=== PATIENT | male | born 1945 | race Caucasian/White ===

== ENCOUNTER 2024-10-28 14:52 | Emergency (ER) | payer OTHER, MEDICARE ==
[2024-10-28 14:59] VITALS: PULSE 76
--- NOTE | 2024-10-28 15:22 | ED ---
Male Urogenital HPI - General Source: patient, RN notes reviewed Mode of arrival: ambulatory Limitations: no limitations <Sherrell Harris - Last Filed: 10/28/24 15:21> <Solitario Daley - Last Filed: 10/28/24 16:56> - General Chief complaint: Urogenital Stated complaint: Abnormal Genital Issue Time Seen by Provider: 10/28/24 15:21 - History of Present Illness Initial comments: Quick note: 79-year-old male presented to ER for evaluation of testicular pain. Patient states on Monday morning he has noticed enlargement of his left testicle. This has continued to enlarge in size over the past 2 days. He states it is currently 4-5 times the size of his right testicle. Patient reports pain with sitting. Patient admits to dysuria and is concerned he may have a UTI. Denies known fevers. (Sherrell Harris) - Related Data Previous Rx's Medication Instructions Recorded Ciprofloxacin HCl [Cipro] 500 mg PO Q12HR #28 tablet 10/28/24 Allergies Allergy/AdvReac Type Severity Reaction Status Date / Time No Known Allergies Allergy Verified 10/28/24 14:59 Review of Systems ROS Other: All systems not noted in ROS Statement are negative. <Sherrell Harris - Last Filed: 10/28/24 15:21> ROS Other: All systems not noted in ROS Statement are negative. <Solitario Daley - Last Filed: 10/28/24 16:56> ROS Statement: Those systems with pertinent positive or pertinent negative responses have been documented in the HPI. Past Medical History Past Medical History: Asthma, Diabetes Mellitus, Hyperlipidemia, Hypertension History of Any Multi-Drug Resistant Organisms: None Reported Past Surgical History: Cholecystectomy Past Psychological History: PTSD Smoking Status: Never smoker Past Alcohol Use History: Rare Past Drug Use History: None Reported <Sherrell Harris - Last Filed: 10/28/24 15:21> General Exam Limitations: no limitations <Sherrell Harris - Last Filed: 10/28/24 15:21> - General Exam Comments Initial Comments: Visual Physical Exam Vital signs reviewed General: Well-appearing, nontoxic, no acute distress. Head: Normocephalic, atraumatic Eyes: PERRLA, EOMI ENT: Airway patent Chest: Nonlabored breathing Skin: No visual rash, normal skin tone Neuro: Alert and oriented 3 Musculoskeletal: No gross abnormalities (Sherrell Harris) Course Vital Signs 10/28/24 10/28/24 14:55 16:38 Temperature 97.9 F 98.3 F Pulse Rate 76 76 Respiratory 16 20 Rate Blood Pressure 97/60 136/77 O2 Sat by Pulse 99 99 Oximetry Medical Decision Making <Sherrell Harris - Last Filed: 10/28/24 15:21> <Solitario Daley - Last Filed: 10/28/24 16:56> - Medical Decision Making I performed the quick note portion of this chart. Electronically signed by Sherrell Harris PA-C (Sherrell Harris) Was pt. sent in by a medical professional or institution ([facility], [facility], urgent care, hospital, or senior living...) When possible be specific @ -No Did you speak to anyone other than the patient for history (EMS, parent, family, police, friend...)? What history was obtained from this source @ -No Did you review nursing and triage notes (agree or disagree)? Why? @ -I reviewed and agree with nursing and triage notes Were old charts reviewed (outside hosp., previous admission, EMS record, old EKG, old radiological studies, urgent care reports/EKG's, senior living records)? Report findings @ -No old charts were reviewed Differential Diagnosis (chest pain, altered mental status, abdominal pain women, abdominal pain men, vaginal bleeding, weakness, fever, dyspnea, syncope, headache, dizziness, GI bleed, back pain, seizure, CVA, palpatations, mental health, musculoskeletal)? @ -Differential Abdominal Pain Men: Appendicitis, cholecystitis, diverticulosis, ischemic bowel, pancreatitis, hepatitis, UTI, gastroenteritis, AAA, incarcerated hernia, bowel obstruction, constipation, inflammatory bowel, hepatitis, peptic ulcer disease, splenic infarction, perforated viscus, testicular torsion, this is not meant to be an all-inclusive list EKG interpreted by me (3pts min.). @ -As above X-rays interpreted by me (1pt min.). @ -None done CT interpreted by me (1pt min.). @ -None done U/S interpreted by me (1pt. min.). @ -Ultrasound without acute abnormality What testing was considered but not performed or refused? (CT, X-rays, U/S, labs)? Why? @ -None What meds were considered but not given or refused? Why? @ -None Did you discuss the management of the patient with other professionals (valeria goodman i.e. , PA, [facility], lab, RT, psych nurse, social services technician, stroke program coordinator, teacher, chief juvenile probation officer, shoe parts caser)? Give summary @ -No Was smoking cessation discussed for >3mins.? @ -No Was critical care preformed (if so, how long)? @ -No Were there social determinants of health that impacted care today? How? (Homelessness, low income, unemployed, alcoholism, drug addiction, transportation, low edu. Level, literacy, decrease access to med. care, senior living, rehab)? @ -No Was there de-escalation of care discussed even if they declined (Discuss DNR or withdrawal of care, Hospice)? DNR status @ -No What co-morbidities impacted this encounter? (DM, HTN, Smoking, COPD, CAD, Cancer, CVA, ARF, Chemo, Hep., AIDS, mental health diagnosis, sleep apnea, morbid obesity)? @ -None Was patient admitted / discharged? Hospital course, mention meds given and route, prescriptions, significant lab abnormalities, going to OR and other pertinent info. @ -Patient presents with left scrotal swelling and tenderness. Ultrasound unremarkable however there is concern for swelling and tenderness on exam. Patient will be discharged with antibiotic and recommended follow-up with urology, number provided. Undiagnosed new problem with uncertain prognosis? @ -No Drug Therapy requiring intensive monitoring for toxicity (Heparin, Nitro, Insulin, Cardizem)? @ -No Were any procedures done? @ -No Diagnosis/symptom? @ -Testicle swelling Acute, or Chronic, or Acute on Chronic? @ -Acute Uncomplicated (without systemic symptoms) or Complicated (systemic symptoms)? @ -Default Side effects of treatment? @ -No Exacerbation, Progression, or Severe Exacerbation? @ -No Poses a threat to life or bodily function? How? (Chest pain, [place], [place], pneumonia, PE, COPD, DKA, ARF, appy, cholecystitis, CVA, Diverticulitis, Homicidal, Suicidal, threat to staff... and all critical care pts) @ -No (Solitario Daley) - Lab Data Lab Results 10/28/24 Range/Units 15:22 Urine Color Colorless Urine Appearance Cloudy (Clear) Urine pH 6.0 (5.0-8.0) Ur Specific [place] 1.021 (1.001-1.035) Urine Protein Negative (Negative) Urine Glucose (UA) 4+ H (Negative) Urine Ketones Negative (Negative) Urine Blood Moderate H (Negative) Urine Nitrite Positive (Negative) Urine Bilirubin Negative (Negative) Urine Urobilinogen <2.0 (<2.0) mg/dL Ur Leukocyte Esterase Large H (Negative) Urine RBC 22 H (0-5) /hpf Urine WBC >182 H (0-5) /hpf Urine WBC Clumps Few H (None) /hpf Ur Squamous Epith Cells 2 (0-4) /hpf Urine Bacteria Rare H (None) /hpf Urine Mucus Rare H (None) /hpf Disposition <Sherrell Harris - Last Filed: 10/28/24 15:21> Is patient prescribed a controlled substance at d/c from ED?: No Time of Disposition: 16:54 <Solitario Daley - Last Filed: 10/28/24 16:56> Clinical Impression: Testicle swelling Disposition: HOME SELF-CARE Condition: Stable Instructions (If sedation given, give patient instructions): Scrotal Pain (ED), Testicle Pain (ED) Additional Instructions: Prescription sent to pharmacy. Please do follow-up with primary care physician in the next day or 2 for recheck. Please do follow-up with urology in the next couple of days for recheck. Return for increased pain, swelling, with change or worsening symptoms or other concerns. We are tight fitting underwear. Prescriptions: Ciprofloxacin HCl [Cipro] 500 mg PO Q12HR #28 tablet Referrals: Nonstaff,Physician [Primary Care Provider] - 1-2 days Luc Arellano MD [STAFF PHYSICIAN] - 1-2 days Forms: Area PCPs
[2024-10-28 15:42] LABS: Appearance,Urine Cloudy (Clear); Bacteria,Urine Rare /hpf; Bilirubin,Urine Negative (Negative); Blood,Urine Moderate (Negative); Color,Urine Colorless; Glucose,Urine (UA) 4+ (Negative); Ketones,Urine Negative (Negative); Leukocyte Esterase,Urine Large (Negative); Mucus,Urine Rare /hpf; Nitrite,Urine Positive (Negative); Protein,Urine Negative (Negative); RBC,Urine 22 /hpf (0-5); Specific Gravity,Urine 1.021 (1.001-1.035); Squamous Epithelial Cell,Urine 2 /hpf (0-4); Urobilinogen,Urine <2.0 mg/dL (<2.0); WBC,Urine >182 /hpf (0-5)
--- NOTE | 2024-10-28 16:15 | US ---
EXAMINATION TYPE: US scrotum with doppler. DATE OF EXAM: 10/28/2024 COMPARISON: NONE CLINICAL INDICATION: Male, 79 years old with history of Left scrotal swelling; Left scrotal swelling and discomfort. Patient states he thinks he has a UTI. TECHNIQUE: Grayscale, color Doppler and spectral Doppler imaging of the scrotum. FINDINGS: EXAM MEASUREMENTS: TESTICLES: Right Testicle: 3.1 x 2.5 x 3.1 cm Left Testicle: 3.6 x 3.7 x 3.0 cm EPIDIDYMIS HEAD: Right Epididymis: 0.8 x 0.8 x 0.9 cm Left Epididymis: 1.4 x 1.7 x 1.6 cm - heterogenous, hypervascular, anechoic lesion seen at head = 0 .4 cm Doppler performed to assess for testicular vascularity; good bilateral color flow and spectral wavefo oscar are seen. There is no evidence of testicular torsion. Presence of hydroceles: small bilateral Presence of varicoceles: no IMPRESSION: No evidence for acute process. No evidence for intratesticular mass. Appropriate arterial and venous spectral waveforms to the testes. [facility], , 10/28/2024 4:12 PM
[2024-10-28 16:40] VITALS: RESP 20
[2024-10-28 17:29] VITALS: BP 128/76; TEMP 98
== END 2024-10-28 17:29 | disposition home or self-care (01) ==
LOC: EC 14:52
DX: N50.89 Other specified disorders of the male genital organs (principal)
CPT/HCPCS: 76870; 81001; 87077; 87086; 87186; 93975; 99284